=== PATIENT | male | born 1965 | race African-American/Black ===

== ENCOUNTER 2021-05-14 14:20 | Inpatient (IN) | payer OTHER ==
[2021-05-14] MEDS ORDERED: diazePAM 5 MG TABLET PO ONE (14:45)
[2021-05-14 15:16] VITALS: BMI 26.6
[2021-05-14] MEDS ORDERED: BISMUTH SUBSALICYLATE 524 MG/30 ML PO PRN (18:50)
[2021-05-14] MEDS ORDERED: ONDANSETRON *ODT* 4 MG TABLET SL PRN (18:50)
[2021-05-14] MEDS ORDERED: IBUPROFEN 400 MG TABLET (FP) PO PRN (18:50)
[2021-05-14] MEDS ORDERED: MAGNESIUM HYDROX 2400MG/30ML ORAL SUSPENSION 30 ML CUP PO PRN (18:50)
[2021-05-14] MEDS ORDERED: ACETAMINOPHEN 325 MG TABLET (FP) PO PRN (18:50)
[2021-05-14] MEDS ORDERED: MENTHOL/PHENOL 1 EACH UD MM PRN (18:50)
[2021-05-14] MEDS ORDERED: MAG HYDROX/AL HYDROX/SIMETH 30 ML UNIT-DOSE CUP PO PRN (18:50)
[2021-05-14] MEDS ORDERED: MAGNESIUM CITRATE 300 ML BOTTLE PO PRN (18:50)
[2021-05-14] MEDS ORDERED: LORazepam 1 MG TABLET PO PRN (18:52)
[2021-05-14] MEDS: LORazepam 2 MG TABLET PO SCH ×2 (19:27→19:41)
[2021-05-14] MEDS: METHOCARBAMOL 500 MG TABLET PO PRN (19:43)
[2021-05-14] MEDS ORDERED: hydrOXYzine PAMOATE 25 MG CAPSULE (FP) PO SCH (22:00)
[2021-05-14] MEDS: MELATONIN 5 MG TABLETS PO SCH (22:58)
[2021-05-14] MEDS: THIAMINE HCL 100 MG TABLET (FP) PO SCH (22:58)
[2021-05-15] MEDS: LORazepam 2 MG TABLET PO SCH (00:13)
[2021-05-15] MEDS: LORazepam 1 MG TABLET PO SCH ×4 (06:23→22:25)
[2021-05-15] MEDS: PRENATAL VITAMINS W/ FOLIC ACID TABLET (FP) PO SCH (10:35)
[2021-05-15] MEDS: METHOCARBAMOL 500 MG TABLET PO PRN (10:35)
[2021-05-15 13:07] LABS: HEMATOCRIT 40.3 % (35.4-49); HEMOGLOBIN 13.3 GM/dL (11.7-16.9); MCH 29.8 pg (25.7-33.7); MEAN CELL VOLUME 90.3 fl (80-96); MEAN PLT VOLUME 7.9 fl (7.5-11.1); PLATELET COUNT 240 10^3/uL (134-434); RBC 4.46 M/mm3 (4.00-5.60); RDW 15.5 % (11.9-15.9); WHITE BLOOD COUNT 5.8 K/mm3 (4.0-10.0)
[2021-05-15 13:11] LABS: CALCIUM 8.5 mg/dL (8.5-10.1)
[2021-05-15 13:12] LABS: ALBUMIN 3.6 g/dl (3.4-5.0)
[2021-05-15 13:17] LABS: TOT PROT 7.2 g/dl (6.4-8.2)
[2021-05-15] MEDS: ASPIRIN 81 MG CHEWABLE TABLETS PO SCH (15:19)
[2021-05-15] MEDS: POTASSIUM CHLORIDE TABS 20 MEQ TABLET.ER (FP) PO SCH (15:19)
[2021-05-15] MEDS: NIFEdipine E.R. 90 MG TABLET PO SCH (15:44)
[2021-05-15] MEDS: ROSUVASTATIN CA 20 MG TABLET (FP) PO SCH (22:23)
[2021-05-15] MEDS: THIAMINE HCL 100 MG TABLET (FP) PO SCH (22:23)
[2021-05-15] MEDS: MELATONIN 5 MG TABLETS PO SCH (22:23)
[2021-05-15] MEDS: GABAPENTIN 300 MG CAPSULE PO SCH (22:23)
[2021-05-15] MEDS: METOPROLOL TARTRATE 50 MG TABLET (FP) PO SCH (22:23)
[2021-05-15] MEDS: DORZOLAMIDE 2% HCL OPHTHALMIC SOLUTION 10 ML BOTTLE OU SCH (22:24)
[2021-05-15] MEDS: FLECAINIDE ACETATE 50 MG TABLET PO SCH (22:24)
[2021-05-16] MEDS ORDERED: LORazepam 0.5 MG TABLET PO PRN
[2021-05-16] MEDS: GABAPENTIN 300 MG CAPSULE PO SCH ×3 (06:54→22:02)
[2021-05-16] MEDS: LORazepam 0.5 MG TABLET PO SCH ×4 (06:54→22:02)
[2021-05-16] MEDS: DORZOLAMIDE 2% HCL OPHTHALMIC SOLUTION 10 ML BOTTLE OU SCH ×3 (06:55→22:04)
[2021-05-16] MEDS: METOPROLOL TARTRATE 50 MG TABLET (FP) PO SCH ×2 (10:10→22:03)
[2021-05-16] MEDS: POTASSIUM CHLORIDE TABS 20 MEQ TABLET.ER (FP) PO SCH (10:10)
[2021-05-16] MEDS: ASPIRIN 81 MG CHEWABLE TABLETS PO SCH (10:10)
[2021-05-16] MEDS: NIFEdipine E.R. 90 MG TABLET PO SCH (10:10)
[2021-05-16] MEDS: PRENATAL VITAMINS W/ FOLIC ACID TABLET (FP) PO SCH (10:10)
[2021-05-16] MEDS: FLECAINIDE ACETATE 50 MG TABLET PO SCH ×2 (10:11→22:04)
[2021-05-16] MEDS: THIAMINE HCL 100 MG TABLET (FP) PO SCH (22:02)
[2021-05-16] MEDS: ROSUVASTATIN CA 20 MG TABLET (FP) PO SCH (22:03)
[2021-05-16] MEDS: MELATONIN 5 MG TABLETS PO SCH (22:03)
[2021-05-17] MEDS ORDERED: LORazepam 0.5 MG TABLET PO ONE (05:00)
[2021-05-17] MEDS: DORZOLAMIDE 2% HCL OPHTHALMIC SOLUTION 10 ML BOTTLE OU SCH ×2 (05:51→13:41)
[2021-05-17] MEDS: GABAPENTIN 300 MG CAPSULE PO SCH ×2 (05:51→13:41)
[2021-05-17] MEDS: ACETAMINOPHEN 325 MG TABLET (FP) PO PRN ×2 (05:51→14:56)
[2021-05-17] MEDS: PRENATAL VITAMINS W/ FOLIC ACID TABLET (FP) PO SCH (10:04)
[2021-05-17] MEDS: METOPROLOL TARTRATE 50 MG TABLET (FP) PO SCH (10:04)
[2021-05-17] MEDS: POTASSIUM CHLORIDE TABS 20 MEQ TABLET.ER (FP) PO SCH (10:04)
[2021-05-17] MEDS: NIFEdipine E.R. 90 MG TABLET PO SCH (10:04)
[2021-05-17] MEDS: ASPIRIN 81 MG CHEWABLE TABLETS PO SCH (10:04)
[2021-05-17] MEDS: FLECAINIDE ACETATE 50 MG TABLET PO SCH (10:04)
[2021-05-17 15:30] VITALS: BP 150/95; PULSE 73; TEMP 96.9
== END 2021-05-17 17:35 | disposition other institution (70) | DRG 775 ==
LOC: YASAS 14:20 → Y6N 15:22
PROVIDERS: ADMIT Allergy & Immunology; ATTEND Allergy & Immunology
PROC: HZ2ZZZZ Detoxification Services for Substance Abuse Treatment (ICD-10-PCS; principal; 2021-05-14)
DX: F10.230 Alcohol dependence with withdrawal, uncomplicated (principal); F19.280 Other psychoactive substance dependence with psychoactive substance-induced anxiety disorder; I10 Essential (primary) hypertension; Z87.891 Personal history of nicotine dependence; Z86.19 Personal history of other infectious and parasitic diseases; Z98.890 Other specified postprocedural states
CPT/HCPCS: 36415; 80053; 85027; 86780; 93005; 93010; C9803; U0003; U0005

== ENCOUNTER 2021-05-17 10:27 | Inpatient (IN) | payer OTHER ==
[2021-05-17] MEDS ORDERED: ACETAMINOPHEN 325 MG TABLET (FP) PO PRN (18:54)
[2021-05-17] MEDS ORDERED: guaiFENesin 200 MG/10 ML 10 ML UNIT-DOSE CUPS PO PRN (18:54)
[2021-05-17] MEDS ORDERED: MAGNESIUM HYDROX 2400MG/30ML ORAL SUSPENSION 30 ML CUP PO PRN (18:54)
[2021-05-17] MEDS ORDERED: MAGNESIUM CITRATE 300 ML BOTTLE PO PRN (18:54)
[2021-05-17] MEDS ORDERED: P-EPHED 60MG/TRIPROLIDI 2.5MG TABLET PO PRN (18:54)
[2021-05-17] MEDS ORDERED: MENTHOL/PHENOL 1 EACH UD MM PRN (18:54)
[2021-05-17] MEDS ORDERED: hydrOXYzine PAMOATE 25 MG CAPSULE (FP) PO PRN (18:54)
[2021-05-17] MEDS ORDERED: LOPERAMIDE HCL 2 MG CAPSULE PO PRN (18:54)
[2021-05-17] MEDS ORDERED: MAG HYDROX/AL HYDROX/SIMETH 30 ML UNIT-DOSE CUP PO PRN (18:54)
[2021-05-17] MEDS: ROSUVASTATIN CA 20 MG TABLET (FP) PO SCH (21:09)
[2021-05-17] MEDS: THIAMINE HCL 100 MG TABLET (FP) PO SCH (21:09)
[2021-05-17] MEDS: FLECAINIDE ACETATE 50 MG TABLET PO SCH (21:09)
[2021-05-17] MEDS: GABAPENTIN 300 MG CAPSULE PO SCH (21:09)
[2021-05-17] MEDS: METOPROLOL TARTRATE 50 MG TABLET (FP) PO SCH (21:09)
[2021-05-17] MEDS: MELATONIN 5 MG TABLETS PO SCH (21:10)
[2021-05-17] MEDS ORDERED: cloNIDine HCL 0.1 MG TABLET PO ONE (22:45)
[2021-05-17] MEDS ORDERED: PT OWN MED DRAWER 7, Y5N ONE (23:54)
[2021-05-18] MEDS ORDERED: hydrOXYzine PAMOATE 25 MG CAPSULE (FP) PO ONE (04:14)
[2021-05-18] MEDS: GABAPENTIN 300 MG CAPSULE PO SCH ×3 (06:24→21:15)
[2021-05-18] MEDS ORDERED: cloNIDine HCL 0.1 MG TABLET PO ONE (07:45)
[2021-05-18] MEDS ORDERED: PT OWN MED DRAWER 7, Y5N ONE ×4 (08:57→22:16)
[2021-05-18] MEDS: ASPIRIN 81 MG CHEWABLE TABLETS PO SCH (09:12)
[2021-05-18] MEDS: METOPROLOL TARTRATE 50 MG TABLET (FP) PO SCH ×2 (09:12→21:15)
[2021-05-18] MEDS: NIFEdipine E.R. 90 MG TABLET PO SCH (09:12)
[2021-05-18] MEDS: FLECAINIDE ACETATE 50 MG TABLET PO SCH ×2 (09:13→21:17)
[2021-05-18] MEDS: PRENATAL VITAMINS W/ FOLIC ACID TABLET (FP) PO SCH (09:14)
[2021-05-18] MEDS: FOLIC ACID 1 MG TABLET (FP) PO SCH (10:29)
[2021-05-18] MEDS: POTASSIUM CHLORIDE TABS 20 MEQ TABLET.ER (FP) PO SCH (11:00)
[2021-05-18] MEDS: MIRTAZAPINE 15 MG TABLET (FP) PO SCH (21:15)
[2021-05-18] MEDS: THIAMINE HCL 100 MG TABLET (FP) PO SCH (21:15)
[2021-05-18] MEDS: ROSUVASTATIN CA 20 MG TABLET (FP) PO SCH (21:15)
[2021-05-18] MEDS: cloNIDine HCL 0.1 MG TABLET PO SCH (21:15)
[2021-05-18] MEDS: MELATONIN 5 MG TABLETS PO SCH (21:16)
[2021-05-19] MEDS: GABAPENTIN 300 MG CAPSULE PO SCH ×3 (06:18→21:52)
[2021-05-19] MEDS ORDERED: PT OWN MED DRAWER 7, Y5N ONE ×5 (08:52→20:06)
[2021-05-19] MEDS: NIFEdipine E.R. 90 MG TABLET PO SCH (10:20)
[2021-05-19] MEDS: PARoxetine HCL 10 MG TABLET PO SCH (10:20)
[2021-05-19] MEDS: ASPIRIN 81 MG CHEWABLE TABLETS PO SCH (10:21)
[2021-05-19] MEDS: cloNIDine HCL 0.1 MG TABLET PO SCH (10:21)
[2021-05-19] MEDS: FOLIC ACID 1 MG TABLET (FP) PO SCH (10:22)
[2021-05-19] MEDS: PRENATAL VITAMINS W/ FOLIC ACID TABLET (FP) PO SCH (10:23)
[2021-05-19] MEDS: METOPROLOL TARTRATE 50 MG TABLET (FP) PO SCH ×2 (10:23→21:52)
[2021-05-19] MEDS: FLECAINIDE ACETATE 50 MG TABLET PO SCH ×2 (10:25→21:52)
[2021-05-19] MEDS: hydrOXYzine PAMOATE 25 MG CAPSULE (FP) PO PRN (15:44)
[2021-05-19] MEDS ORDERED: METOPROLOL TARTRATE 25 MG TABLET (FP) PO ONE (17:44)
[2021-05-19] MEDS ORDERED: MIRTAZAPINE 15 MG TABLET (FP) ONE (20:05)
[2021-05-19] MEDS: MIRTAZAPINE 30 MG TABLET PO SCH (21:52)
[2021-05-19] MEDS: ROSUVASTATIN CA 20 MG TABLET (FP) PO SCH (21:53)
[2021-05-19] MEDS: THIAMINE HCL 100 MG TABLET (FP) PO SCH (21:54)
[2021-05-20] MEDS: GABAPENTIN 300 MG CAPSULE PO SCH ×3 (06:24→21:10)
[2021-05-20] MEDS: PARoxetine HCL 10 MG TABLET PO SCH (10:14)
[2021-05-20] MEDS: METOPROLOL TARTRATE 50 MG TABLET (FP) PO SCH ×3 (10:14→21:10)
[2021-05-20] MEDS: ASPIRIN 81 MG CHEWABLE TABLETS PO SCH (10:14)
[2021-05-20] MEDS: FOLIC ACID 1 MG TABLET (FP) PO SCH (10:14)
[2021-05-20] MEDS: FLECAINIDE ACETATE 50 MG TABLET PO SCH ×2 (10:15→22:23)
[2021-05-20] MEDS: PRENATAL VITAMINS W/ FOLIC ACID TABLET (FP) PO SCH (10:15)
[2021-05-20] MEDS: NIFEdipine E.R. 90 MG TABLET PO SCH (10:15)
[2021-05-20] MEDS ORDERED: LACTULOSE 20 GM/30 ML UDC (FOR ORAL USE ONLY) PO PRN (14:56)
[2021-05-20] MEDS ORDERED: MIRTAZAPINE 15 MG TABLET (FP) ONE (20:45)
[2021-05-20] MEDS ORDERED: PT OWN MED DRAWER 7, Y5N ONE (20:47)
[2021-05-20] MEDS: ROSUVASTATIN CA 20 MG TABLET (FP) PO SCH (21:09)
[2021-05-20] MEDS: THIAMINE HCL 100 MG TABLET (FP) PO SCH (21:10)
[2021-05-20] MEDS: MIRTAZAPINE 30 MG TABLET PO SCH (21:10)
[2021-05-20] MEDS: IBUPROFEN 400 MG TABLET (FP) PO PRN (21:11)
[2021-05-21] MEDS: GABAPENTIN 300 MG CAPSULE PO SCH ×3 (06:34→21:35)
[2021-05-21] MEDS ORDERED: PT OWN MED DRAWER 7, Y5N ONE ×3 (08:27→20:44)
[2021-05-21] MEDS: FOLIC ACID 1 MG TABLET (FP) PO SCH (09:31)
[2021-05-21] MEDS: PRENATAL VITAMINS W/ FOLIC ACID TABLET (FP) PO SCH (09:31)
[2021-05-21] MEDS: NIFEdipine E.R. 90 MG TABLET PO SCH (09:31)
[2021-05-21] MEDS: ASPIRIN 81 MG CHEWABLE TABLETS PO SCH (09:31)
[2021-05-21] MEDS: METOPROLOL TARTRATE 25 MG TABLET (FP) PO SCH (09:32)
[2021-05-21] MEDS ORDERED: METOPROLOL TARTRATE 50 MG TABLET (FP) PO SCH ×2 (10:00→22:00)
[2021-05-21] MEDS: PARoxetine HCL 10 MG TABLET PO SCH (10:07)
[2021-05-21] MEDS: FLECAINIDE ACETATE 50 MG TABLET PO SCH ×2 (10:07→21:37)
[2021-05-21] MEDS: POTASSIUM CHLORIDE TABS 20 MEQ TABLET.ER (FP) PO SCH (10:07)
[2021-05-21] MEDS: IBUPROFEN 400 MG TABLET (FP) PO PRN (18:47)
[2021-05-21] MEDS ORDERED: MIRTAZAPINE 15 MG TABLET (FP) ONE (20:40)
[2021-05-21] MEDS: THIAMINE HCL 100 MG TABLET (FP) PO SCH (21:35)
[2021-05-21] MEDS: METOPROLOL TARTRATE 50 MG TABLET (FP) PO SCH (21:36)
[2021-05-21] MEDS: MIRTAZAPINE 30 MG TABLET PO SCH (21:37)
[2021-05-21] MEDS: ROSUVASTATIN CA 20 MG TABLET (FP) PO SCH (21:38)
[2021-05-22] MEDS ORDERED: PT OWN MED DRAWER 7, Y5N ONE ×4 (00:17→21:17)
[2021-05-22] MEDS: GABAPENTIN 300 MG CAPSULE PO SCH ×3 (06:09→21:13)
[2021-05-22] MEDS: ASPIRIN 81 MG CHEWABLE TABLETS PO SCH (10:02)
[2021-05-22] MEDS: FOLIC ACID 1 MG TABLET (FP) PO SCH (10:02)
[2021-05-22] MEDS: PARoxetine HCL 10 MG TABLET PO SCH (10:03)
[2021-05-22] MEDS: PRENATAL VITAMINS W/ FOLIC ACID TABLET (FP) PO SCH (10:03)
[2021-05-22] MEDS: METOPROLOL TARTRATE 25 MG TABLET (FP) PO SCH (10:03)
[2021-05-22] MEDS: NIFEdipine E.R. 90 MG TABLET PO SCH (10:03)
[2021-05-22] MEDS: FLECAINIDE ACETATE 50 MG TABLET PO SCH ×2 (10:04→21:12)
[2021-05-22] MEDS: IBUPROFEN 400 MG TABLET (FP) PO PRN (15:14)
[2021-05-22] MEDS ORDERED: MIRTAZAPINE 15 MG TABLET (FP) ONE (19:41)
[2021-05-22] MEDS: ROSUVASTATIN CA 20 MG TABLET (FP) PO SCH (21:12)
[2021-05-22] MEDS: THIAMINE HCL 100 MG TABLET (FP) PO SCH (21:12)
[2021-05-22] MEDS: MIRTAZAPINE 30 MG TABLET PO SCH (21:14)
[2021-05-22] MEDS: METOPROLOL TARTRATE 50 MG TABLET (FP) PO SCH (21:18)
[2021-05-23] MEDS: GABAPENTIN 300 MG CAPSULE PO SCH ×3 (06:22→21:47)
[2021-05-23] MEDS: hydrOXYzine PAMOATE 25 MG CAPSULE (FP) PO PRN (10:11)
[2021-05-23] MEDS: PRENATAL VITAMINS W/ FOLIC ACID TABLET (FP) PO SCH (10:11)
[2021-05-23] MEDS: NIFEdipine E.R. 90 MG TABLET PO SCH (10:11)
[2021-05-23] MEDS: ASPIRIN 81 MG CHEWABLE TABLETS PO SCH (10:12)
[2021-05-23] MEDS: METOPROLOL TARTRATE 25 MG TABLET (FP) PO SCH (10:12)
[2021-05-23] MEDS: FOLIC ACID 1 MG TABLET (FP) PO SCH (10:12)
[2021-05-23] MEDS: PARoxetine HCL 10 MG TABLET PO SCH (10:14)
[2021-05-23] MEDS: FLECAINIDE ACETATE 50 MG TABLET PO SCH ×2 (10:15→21:48)
[2021-05-23] MEDS ORDERED: PT OWN MED DRAWER 7, Y5N ONE ×5 (10:22→22:06)
[2021-05-23] MEDS ORDERED: LACTULOSE 20 GM/30 ML UDC (FOR ORAL USE ONLY) PO ONE (12:45)
[2021-05-23] MEDS: DORZOLAMIDE 2% HCL OPHTHALMIC SOLUTION 10 ML BOTTLE OU SCH ×2 (14:52→21:50)
[2021-05-23] MEDS ORDERED: MIRTAZAPINE 15 MG TABLET (FP) ONE (20:05)
[2021-05-23] MEDS: METOPROLOL TARTRATE 50 MG TABLET (FP) PO SCH (21:18)
[2021-05-23] MEDS: MIRTAZAPINE 30 MG TABLET PO SCH (21:18)
[2021-05-23] MEDS: ROSUVASTATIN CA 20 MG TABLET (FP) PO SCH (21:48)
[2021-05-23] MEDS: LACTULOSE 20 GM/30 ML UDC (FOR ORAL USE ONLY) PO SCH (21:49)
[2021-05-23] MEDS: THIAMINE HCL 100 MG TABLET (FP) PO SCH (21:50)
[2021-05-24] MEDS: GABAPENTIN 300 MG CAPSULE PO SCH ×3 (06:43→21:15)
[2021-05-24] MEDS: DORZOLAMIDE 2% HCL OPHTHALMIC SOLUTION 10 ML BOTTLE OU SCH ×3 (06:43→21:16)
[2021-05-24] MEDS ORDERED: PT OWN MED DRAWER 7, Y5N ONE ×4 (08:58→19:37)
[2021-05-24] MEDS: METOPROLOL TARTRATE 25 MG TABLET (FP) PO SCH (10:13)
[2021-05-24] MEDS: NIFEdipine E.R. 90 MG TABLET PO SCH (10:13)
[2021-05-24] MEDS: PRENATAL VITAMINS W/ FOLIC ACID TABLET (FP) PO SCH (10:13)
[2021-05-24] MEDS: FOLIC ACID 1 MG TABLET (FP) PO SCH (10:13)
[2021-05-24] MEDS: ASPIRIN 81 MG CHEWABLE TABLETS PO SCH (10:13)
[2021-05-24] MEDS: FLECAINIDE ACETATE 50 MG TABLET PO SCH ×2 (10:14→21:17)
[2021-05-24] MEDS: PARoxetine HCL 10 MG TABLET PO SCH (10:14)
[2021-05-24] MEDS: LACTULOSE 20 GM/30 ML UDC (FOR ORAL USE ONLY) PO SCH ×2 (10:14→21:16)
[2021-05-24] MEDS: IBUPROFEN 400 MG TABLET (FP) PO PRN (12:03)
[2021-05-24] MEDS ORDERED: MIRTAZAPINE 15 MG TABLET (FP) ONE (19:31)
[2021-05-24] MEDS: MELATONIN 5 MG TABLETS PO PRN (21:14)
[2021-05-24] MEDS: MIRTAZAPINE 15 MG TABLET (FP) PO SCH (21:14)
[2021-05-24] MEDS: METOPROLOL TARTRATE 50 MG TABLET (FP) PO SCH (21:15)
[2021-05-24] MEDS: THIAMINE HCL 100 MG TABLET (FP) PO SCH (21:15)
[2021-05-24] MEDS: ROSUVASTATIN CA 20 MG TABLET (FP) PO SCH (21:15)
[2021-05-24] MEDS: MIRTAZAPINE 30 MG TABLET PO SCH (21:17)
[2021-05-25] MEDS: GABAPENTIN 300 MG CAPSULE PO SCH ×3 (06:27→21:26)
[2021-05-25] MEDS: DORZOLAMIDE 2% HCL OPHTHALMIC SOLUTION 10 ML BOTTLE OU SCH ×3 (06:27→21:26)
[2021-05-25] MEDS: ASPIRIN 81 MG CHEWABLE TABLETS PO SCH (09:26)
[2021-05-25] MEDS: METOPROLOL TARTRATE 25 MG TABLET (FP) PO SCH (09:27)
[2021-05-25] MEDS: PARoxetine HCL 10 MG TABLET PO SCH (09:27)
[2021-05-25] MEDS: FOLIC ACID 1 MG TABLET (FP) PO SCH (09:27)
[2021-05-25] MEDS: PRENATAL VITAMINS W/ FOLIC ACID TABLET (FP) PO SCH (09:28)
[2021-05-25] MEDS: NIFEdipine E.R. 90 MG TABLET PO SCH (09:28)
[2021-05-25] MEDS: FLECAINIDE ACETATE 50 MG TABLET PO SCH ×2 (09:28→21:28)
[2021-05-25] MEDS: LACTULOSE 20 GM/30 ML UDC (FOR ORAL USE ONLY) PO SCH ×2 (10:29→21:24)
[2021-05-25] MEDS ORDERED: PT OWN MED DRAWER 7, Y5N ONE (15:58)
[2021-05-25] MEDS: IBUPROFEN 400 MG TABLET (FP) PO PRN (16:00)
[2021-05-25] MEDS ORDERED: MIRTAZAPINE 15 MG TABLET (FP) ONE (19:00)
[2021-05-25] MEDS: MIRTAZAPINE 30 MG TABLET PO SCH (21:25)
[2021-05-25] MEDS: METOPROLOL TARTRATE 50 MG TABLET (FP) PO SCH (21:25)
[2021-05-25] MEDS: MELATONIN 5 MG TABLETS PO PRN (21:26)
[2021-05-25] MEDS: THIAMINE HCL 100 MG TABLET (FP) PO SCH (21:26)
[2021-05-25] MEDS: ROSUVASTATIN CA 20 MG TABLET (FP) PO SCH (21:26)
[2021-05-26] MEDS: DORZOLAMIDE 2% HCL OPHTHALMIC SOLUTION 10 ML BOTTLE OU SCH ×3 (06:33→22:36)
[2021-05-26] MEDS: GABAPENTIN 300 MG CAPSULE PO SCH ×3 (06:33→21:12)
[2021-05-26] MEDS: ASPIRIN 81 MG CHEWABLE TABLETS PO SCH (10:13)
[2021-05-26] MEDS: LACTULOSE 20 GM/30 ML UDC (FOR ORAL USE ONLY) PO SCH ×2 (10:13→21:16)
[2021-05-26] MEDS: FOLIC ACID 1 MG TABLET (FP) PO SCH (10:14)
[2021-05-26] MEDS: NIFEdipine E.R. 90 MG TABLET PO SCH (10:14)
[2021-05-26] MEDS: METOPROLOL TARTRATE 25 MG TABLET (FP) PO SCH (10:14)
[2021-05-26] MEDS: FLECAINIDE ACETATE 50 MG TABLET PO SCH ×2 (10:14→21:14)
[2021-05-26] MEDS: PRENATAL VITAMINS W/ FOLIC ACID TABLET (FP) PO SCH (10:15)
[2021-05-26] MEDS: PARoxetine HCL 10 MG TABLET PO SCH (10:16)
[2021-05-26] MEDS ORDERED: PT OWN MED DRAWER 7, Y5N ONE ×2 (15:45→19:29)
[2021-05-26] MEDS ORDERED: MIRTAZAPINE 15 MG TABLET (FP) ONE (19:26)
[2021-05-26] MEDS: METOPROLOL TARTRATE 50 MG TABLET (FP) PO SCH (21:12)
[2021-05-26] MEDS: ROSUVASTATIN CA 20 MG TABLET (FP) PO SCH (21:13)
[2021-05-26] MEDS: MIRTAZAPINE 30 MG TABLET PO SCH (21:13)
[2021-05-26] MEDS: THIAMINE HCL 100 MG TABLET (FP) PO SCH (21:13)
[2021-05-26] MEDS: MELATONIN 5 MG TABLETS PO PRN (21:13)
[2021-05-26] MEDS: hydrOXYzine PAMOATE 25 MG CAPSULE (FP) PO PRN (21:14)
[2021-05-27] MEDS ORDERED: PT OWN MED DRAWER 7, Y5N ONE ×4 (03:47→14:21)
[2021-05-27] MEDS: DORZOLAMIDE 2% HCL OPHTHALMIC SOLUTION 10 ML BOTTLE OU SCH ×3 (06:22→21:51)
[2021-05-27] MEDS: GABAPENTIN 300 MG CAPSULE PO SCH ×3 (06:22→21:29)
[2021-05-27] MEDS: LACTULOSE 20 GM/30 ML UDC (FOR ORAL USE ONLY) PO SCH ×2 (10:10→21:29)
[2021-05-27] MEDS: FOLIC ACID 1 MG TABLET (FP) PO SCH (10:10)
[2021-05-27] MEDS: FLECAINIDE ACETATE 50 MG TABLET PO SCH ×2 (10:11→21:51)
[2021-05-27] MEDS: PRENATAL VITAMINS W/ FOLIC ACID TABLET (FP) PO SCH (10:11)
[2021-05-27] MEDS: METOPROLOL TARTRATE 25 MG TABLET (FP) PO SCH (10:11)
[2021-05-27] MEDS: NIFEdipine E.R. 90 MG TABLET PO SCH (10:12)
[2021-05-27] MEDS: PARoxetine HCL 10 MG TABLET PO SCH (10:13)
[2021-05-27] MEDS: hydrOXYzine PAMOATE 25 MG CAPSULE (FP) PO PRN ×2 (10:14→18:10)
[2021-05-27] MEDS: ASPIRIN 81 MG CHEWABLE TABLETS PO SCH (11:00)
[2021-05-27] MEDS: IBUPROFEN 400 MG TABLET (FP) PO PRN (14:24)
[2021-05-27] MEDS ORDERED: MIRTAZAPINE 15 MG TABLET (FP) ONE (19:48)
[2021-05-27] MEDS: MIRTAZAPINE 30 MG TABLET PO SCH (21:29)
[2021-05-27] MEDS: THIAMINE HCL 100 MG TABLET (FP) PO SCH (21:29)
[2021-05-27] MEDS: MELATONIN 5 MG TABLETS PO PRN (21:31)
[2021-05-27] MEDS: ROSUVASTATIN CA 20 MG TABLET (FP) PO SCH (21:50)
[2021-05-27] MEDS: METOPROLOL TARTRATE 50 MG TABLET (FP) PO SCH (21:51)
[2021-05-28] MEDS ORDERED: PT OWN MED DRAWER 7, Y5N ONE ×5 (03:27→19:58)
[2021-05-28] MEDS: GABAPENTIN 300 MG CAPSULE PO SCH ×3 (06:23→21:17)
[2021-05-28] MEDS: DORZOLAMIDE 2% HCL OPHTHALMIC SOLUTION 10 ML BOTTLE OU SCH ×3 (06:24→21:18)
[2021-05-28] MEDS: ASPIRIN 81 MG CHEWABLE TABLETS PO SCH (09:23)
[2021-05-28] MEDS: METOPROLOL TARTRATE 25 MG TABLET (FP) PO SCH (09:23)
[2021-05-28] MEDS: LACTULOSE 20 GM/30 ML UDC (FOR ORAL USE ONLY) PO SCH ×2 (09:23→21:16)
[2021-05-28] MEDS: FOLIC ACID 1 MG TABLET (FP) PO SCH (09:23)
[2021-05-28] MEDS: PRENATAL VITAMINS W/ FOLIC ACID TABLET (FP) PO SCH (09:24)
[2021-05-28] MEDS: FLECAINIDE ACETATE 50 MG TABLET PO SCH ×2 (09:24→21:18)
[2021-05-28] MEDS: NIFEdipine E.R. 90 MG TABLET PO SCH (09:24)
[2021-05-28] MEDS: PARoxetine HCL 10 MG TABLET PO SCH (09:24)
[2021-05-28] MEDS: hydrOXYzine PAMOATE 25 MG CAPSULE (FP) PO PRN (09:25)
[2021-05-28] MEDS: IBUPROFEN 400 MG TABLET (FP) PO PRN (17:32)
[2021-05-28] MEDS ORDERED: MIRTAZAPINE 15 MG TABLET (FP) ONE (19:48)
[2021-05-28] MEDS: MELATONIN 5 MG TABLETS PO PRN (21:17)
[2021-05-28] MEDS: MIRTAZAPINE 30 MG TABLET PO SCH (21:18)
[2021-05-28] MEDS: THIAMINE HCL 100 MG TABLET (FP) PO SCH (21:18)
[2021-05-28] MEDS: ROSUVASTATIN CA 20 MG TABLET (FP) PO SCH (21:18)
[2021-05-28] MEDS: METOPROLOL TARTRATE 50 MG TABLET (FP) PO SCH (21:20)
[2021-05-29] MEDS ORDERED: PT OWN MED DRAWER 7, Y5N ONE ×4 (00:07→09:29)
[2021-05-29] MEDS: GABAPENTIN 300 MG CAPSULE PO SCH (06:30)
[2021-05-29] MEDS: DORZOLAMIDE 2% HCL OPHTHALMIC SOLUTION 10 ML BOTTLE OU SCH (06:30)
[2021-05-29] MEDS: LACTULOSE 20 GM/30 ML UDC (FOR ORAL USE ONLY) PO SCH (09:28)
[2021-05-29] MEDS: ASPIRIN 81 MG CHEWABLE TABLETS PO SCH (09:29)
[2021-05-29] MEDS: NIFEdipine E.R. 90 MG TABLET PO SCH (09:29)
[2021-05-29] MEDS: PRENATAL VITAMINS W/ FOLIC ACID TABLET (FP) PO SCH (09:29)
[2021-05-29] MEDS: FOLIC ACID 1 MG TABLET (FP) PO SCH (09:30)
[2021-05-29] MEDS: METOPROLOL TARTRATE 25 MG TABLET (FP) PO SCH (09:30)
[2021-05-29] MEDS: FLECAINIDE ACETATE 50 MG TABLET PO SCH (09:30)
[2021-05-29] MEDS: PARoxetine HCL 10 MG TABLET PO SCH (09:31)
[2021-05-29 09:38] VITALS: BP 165/100; PULSE 88; TEMP 97.1
== END 2021-05-29 10:02 | disposition home or self-care (01) | DRG 772 ==
LOC: YASAS 10:27 → Y3E 10:28
PROVIDERS: ADMIT Allergy & Immunology; ATTEND Allergy & Immunology
PROC: HZ42ZZZ Group Counseling for Substance Abuse Treatment, Cognitive-Behavioral (ICD-10-PCS; principal; 2021-05-17)
DX: F10.24 Alcohol dependence with alcohol-induced mood disorder (principal); F41.9 Anxiety disorder, unspecified; E72.20 Disorder of urea cycle metabolism, unspecified; G47.00 Insomnia, unspecified; I10 Essential (primary) hypertension; H40.9 Unspecified glaucoma; Z86.19 Personal history of other infectious and parasitic diseases; Z56.0 Unemployment, unspecified
CPT/HCPCS: 36415; 82140; 84132; J0735